=== PATIENT | male | born 1950 | race African-American/Black ===

== ENCOUNTER 2018-08-23 11:44 | Inpatient (IN) ==
[2018-08-23 12:30] LABS: Basophils % 0.6 % (0.0-0.8); Eosinophils # 0.2 10*3/uL (0.0-0.87); Eosinophils % 2.8 % (0.00-10.9); Hematocrit 43.6 VOL% (42.0-52.0); Immature Granulocytes % 0.1 %; Immature Granulocytes Absolute 0.01 #; Lymphocytes # 3.1 10*3/uL (1.4-4.0); Lymphocytes % 45.4 % (21.2-54.2); Mean Corpuscular HGB Conc 32.1 GM/DL (32-36); Mean Corpuscular Hemoglobin 30 PG (27-34); Mean Corpuscular Volume 94.8 FL (87-102); Mean Platelet Volume 10.9 FL (9.6-12.0); Monocytes # 0.5 10*3/uL (0.11-0.8); Monocytes % 6.9 % (1.7-12.7); Neutrophils % 44.2 % (38.7-73.9); Platelet Count 233 T/CUMM (130-400); Red Cell Distribution Width 12.6 % (9.3-17.3); White Blood Count 6.9 T/CUMM (4-12)
[2018-08-23 12:38] LABS: INR 0.9; PT Patient Result 10.3 SECS; Partial Thromboplastin Time 25.1 SECS (0-40)
[2018-08-23 12:52] LABS: Alanine Aminotransferase 27 U/L (16-61); Albumin 3.7 G/DL (3.4-5.0); Alkaline Phosphatase 88 U/L (45-117); Aspartate Amino Transferase 35 U/L (0-37); Blood Urea Nitrogen 17 MG/DL (7-18); Calcium 8.5 MG/DL (8.5-10.1); Glucose 100 MG/DL (74-106); Osmolality,Calculated 282.3 MOS/KG (273-304); Potassium 3.2 MMOL/L (3.5-5.1); Sodium 141 MMOL/L (136-145); Total Protein 7.4 G/DL (6.4-8.3)
[2018-08-23] MEDS ORDERED: ONDANSETRON 4 MG/2 ML VIAL IV PRN (14:11)
[2018-08-23] MEDS ORDERED: ACETAMINOPHEN 325 MG TABLET PO PRN (14:11)
[2018-08-23 14:15] LABS: Apearance,Urine CLEAR (Clear); Bilirubin,Urine Negative (Negative); Blood, Urine Negative (Negative); Glucose,Urine (UA) Negative (Negative); Ketones,Urine Negative (Negative); Mucus,Urine Occasional /LPF (Occasional); Nitrite,Urine Negative (Negative); Protein,Urine Negative; RBC,Urine 1 /HPF (0-4); Urine Color Yellow (Yellow); Urine Specific Gravity 1.015 (1.001-1.035); Urine Urobilinogen < 2.0 EU/DL (0.2-1.0); WBC,Urine <1 /HPF (0-6)
[2018-08-23 14:21] LABS: Barbiturates Screen,Urine Negative (Negative); Benzodiazepines Screen,Urine Negative (Negative); Cannabinoid Screen,Urine Negative (Negative); Opiate Screen,Urine Negative (Negative); Phencyclidine Screen,Urine Negative (Negative)
[2018-08-23] MEDS: POTASSIUM CHLORIDE 20 MEQ TABLET PO SCH (17:15)
[2018-08-23] MEDS: CLOPIDOGREL 75 MG TABLET PO SCH (17:15)
[2018-08-23] MEDS: SODIUM CHLORIDE 0.45% 1,000 ML IV SCH (18:37)
[2018-08-23] MEDS: ATORVASTATIN 40 MG TABLET PO SCH (18:37)
[2018-08-24 04:33] LABS: Basophils # 0.1 10*3/uL (0.0-0.2); Basophils % 0.8 % (0.0-0.8); Eosinophils # 0.2 10*3/uL (0.0-0.87); Eosinophils % 2.8 % (0.00-10.9); Hematocrit 43.5 VOL% (42.0-52.0); Hemoglobin 14.3 GM/DL (14.0-18.0); Immature Granulocytes % 0.2 %; Immature Granulocytes Absolute 0.01 #; Lymphocytes # 2.8 10*3/uL (1.4-4.0); Lymphocytes % 42.7 % (21.2-54.2); Mean Corpuscular HGB Conc 32.9 GM/DL (32-36); Mean Corpuscular Hemoglobin 31 PG (27-34); Mean Corpuscular Volume 93.1 FL (87-102); Mean Platelet Volume 11.3 FL (9.6-12.0); Monocytes # 0.6 10*3/uL (0.11-0.8); Monocytes % 8.8 % (1.7-12.7); Neutrophils # 2.9 10*3/uL (1.4-7.4); Neutrophils % 44.7 % (38.7-73.9); Platelet Count 213 T/CUMM (130-400); Red Blood Count 4.67 MC/CUMM (3.8-5.5); Red Cell Distribution Width 12.7 % (9.3-17.3); White Blood Count 6.5 T/CUMM (4-12)
[2018-08-24 05:07] LABS: Albumin 3.1 G/DL (3.4-5.0); Calcium 8.4 MG/DL (8.5-10.1); Osmolality,Calculated 279.3 MOS/KG (273-304); Potassium 3.3 MMOL/L (3.5-5.1); Total Protein 6.9 G/DL (6.4-8.3)
[2018-08-24] MEDS: ATORVASTATIN 40 MG TABLET PO SCH (08:38)
[2018-08-24] MEDS: ASPIRIN EC 81 MG TABLET PO SCH (08:38)
[2018-08-24] MEDS: CLOPIDOGREL 75 MG TABLET PO SCH (08:38)
[2018-08-24] MEDS: amLODIPine 10 MG TABLET PO SCH (08:38)
[2018-08-24] MEDS: PANTOPRAZOLE 40 MG TABLET PO SCH (08:38)
[2018-08-24] MEDS: POTASSIUM CHLORIDE 20 MEQ TABLET PO SCH (08:38)
[2018-08-24] MEDS ORDERED: ATENOLOL 25 MG TABLET PO SCH (09:00)
[2018-08-24] MEDS ORDERED: hydroCHLOROthiazide 25 MG TABLET PO SCH (09:00)
[2018-08-24] MEDS: SODIUM CHLORIDE 0.45% 1,000 ML IV SCH ×2 (18:50)
[2018-08-25] MEDS: SODIUM CHLORIDE 0.45% 1,000 ML IV SCH (04:44)
[2018-08-25 05:43] LABS: Basophils % 0.7 % (0.0-0.8); Eosinophils # 0.2 10*3/uL (0.0-0.87); Eosinophils % 2.7 % (0.00-10.9); Hematocrit 42.6 VOL% (42.0-52.0); Immature Granulocytes % 0.2 %; Immature Granulocytes Absolute 0.01 #; Lymphocytes # 2.4 10*3/uL (1.4-4.0); Lymphocytes % 40.7 % (21.2-54.2); Mean Corpuscular HGB Conc 32.9 GM/DL (32-36); Mean Corpuscular Hemoglobin 31 PG (27-34); Mean Corpuscular Volume 93.4 FL (87-102); Mean Platelet Volume 11.6 FL (9.6-12.0); Monocytes # 0.5 10*3/uL (0.11-0.8); Monocytes % 8.8 % (1.7-12.7); Neutrophils # 2.8 10*3/uL (1.4-7.4); Neutrophils % 46.9 % (38.7-73.9); Platelet Count 217 T/CUMM (130-400); Red Blood Count 4.56 MC/CUMM (3.8-5.5); Red Cell Distribution Width 12.6 % (9.3-17.3)
[2018-08-25 06:03] LABS: Albumin 3.3 G/DL (3.4-5.0); Bilirubin,Total 0.9 MG/DL (0.2-1.0); Calcium 8.3 MG/DL (8.5-10.1); Potassium 3.2 MMOL/L (3.5-5.1); Total Protein 6.9 G/DL (6.4-8.3)
[2018-08-25] MEDS: PANTOPRAZOLE 40 MG TABLET PO SCH (08:40)
[2018-08-25] MEDS: CLOPIDOGREL 75 MG TABLET PO SCH (08:40)
[2018-08-25] MEDS: ATORVASTATIN 40 MG TABLET PO SCH (08:40)
[2018-08-25] MEDS: ASPIRIN EC 81 MG TABLET PO SCH (08:40)
[2018-08-25] MEDS: POTASSIUM CHLORIDE 20 MEQ TABLET PO SCH (08:40)
[2018-08-25] MEDS: amLODIPine 10 MG TABLET PO SCH (08:40)
[2018-08-25] MEDS ORDERED: POLYETHYLENE GLYCOL POWDER 17 GM PACK PO PRN (11:03)
[2018-08-25 12:04] VITALS: BP 128/94
== END 2018-08-25 13:35 | DRG 65 ==
LOC: N.ED 11:44 → N.EDINP 13:44 → N.4E 18:07
PROVIDERS: ADMIT Emergency Medicine; ATTEND Emergency Medicine